=== PATIENT | female | born 1950 | race Caucasian/White ===

== ENCOUNTER 2019-05-03 22:27 | Inpatient (IN) | payer OTHER, MEDICAID ==
[2019-05-03 23:44] LABS: ADD MAN DIFF? NO
[2019-05-03 23:48] LABS: INR 1.81; PROTIME 21.1 Sec (11.9-14.9); PT RATIO 1.6
[2019-05-03 23:52] LABS: ANION GAP 6 (5-13); BLOOD UREA NITROGEN 42 mg/dl (7-20); CALCIUM 9.6 mg/dl (8.4-10.2); CARBON DIOXIDE 31 mmol/L (21-31); CHLORIDE 102 mmol/L (97-110); CREATININE 1.19 mg/dl (0.44-1.00); Estimated GFR 45 mL/min (>60); GLUCOSE 141 mg/dl (70-220); POTASSIUM 4.7 mmol/L (3.5-5.1); SODIUM 139 mmol/L (135-144)
[2019-05-03 23:54] LABS: WHITE BLOOD COUNT 5.4 10^3/ul (4.8-10.8)
[2019-05-03 23:54] LABS: BASOPHIL # 0.1 10^3/ul (0.0-0.1); BASOPHILS % 0.9 % (0.0-2.0); EOSINOPHILS # 0.1 10^3/ul (0.0-0.5); EOSINOPHILS % 1.3 % (0.0-7.0); HEMATOCRIT 37.1 % (37.0-47.0); HEMOGLOBIN 11.1 g/dl (12.0-16.0); LYMPHOCYTES % 18.1 % (15.0-51.0); MEAN CORPUSCULAR HEMOGLOBIN 24.6 pg (29.0-33.0); MEAN CORPUSCULAR HGB CONC 29.9 g/dl (32.0-37.0); MEAN CORPUSCULAR VOLUME 82.1 fl (82.0-101.0); MEAN PLATELET VOLUME 12.4 fl (7.4-10.4); MONOCYTE # 0.5 10^3/ul (0.3-0.9); MONOCYTES % 9.9 % (0.0-11.0); NEUTROPHIL # 3.7 10^3/ul (1.6-7.5); NEUTROPHILS % 69.2 % (39.0-77.0); PLATELET COUNT 180 10^3/UL (140-415); RED BLOOD COUNT 4.52 10^6/ul (4.20-5.40); RED CELL DISTRIBUTION WIDTH 19.2 % (11.5-14.5)
[2019-05-04 00:04] LABS: B-TYPE NATRIURETIC PEPTIDE 5500 PG/ML (0-125); TROPONIN-I < 0.012 ng/ml (0.000-0.120)
[2019-05-04 00:44] LABS: ADD UMIC YES; UR ASCORBIC ACID NEGATIVE (NEGATIVE); UR BACTERIA FEW /HPF (NONE SEEN); UR BILIRUBIN (Dip) NEGATIVE (NEGATIVE); UR BLOOD (Dip) NEGATIVE (NEGATIVE); UR CLARITY CLEAR (CLEAR); UR COLOR YELLOW (YELLOW); UR GLUCOSE (Dip) NEGATIVE (NEGATIVE); UR KETONES (Dip) NEGATIVE (NEGATIVE); UR LEUKOCYTE ESTERASE (Dip) NEGATIVE Leu/ul (NEGATIVE); UR NITRITE (Dip) NEGATIVE (NEGATIVE); UR RBC 0 /HPF (0-5); UR SPECIFIC GRAVITY (Dip) 1.018 (1.003-1.030); UR TOTAL PROTEIN (Dip) 3+ mg/dl (NEGATIVE); UR UROBILINOGEN (Dip) 2+ mg/dL (NEGATIVE); UR WBC 2 /HPF (0-5)
[2019-05-04] MEDS: FUROSEMIDE 20 MG INJ IV ×3 (01:41→17:26)
[2019-05-04] MEDS ORDERED: NACL 0.9% 3 ML SYG IV (02:00)
[2019-05-04] MEDS ORDERED: BISACODYL (EC) 5 MG TAB PO (02:00)
[2019-05-04] MEDS ORDERED: DOCUSATE SODIUM 100 MG CAP PO (02:00)
[2019-05-04] MEDS ORDERED: ONDANSETRON 4 MG INJ IV (02:00)
[2019-05-04 06:12] LABS: ADD MAN DIFF? NO
[2019-05-04] MEDS: ACETAMINOPHEN 325 MG TAB PO ×2 (06:13→21:25)
[2019-05-04 06:21] LABS: WHITE BLOOD COUNT 4.7 10^3/ul (4.8-10.8)
[2019-05-04 06:21] LABS: BASOPHILS % 0.8 % (0.0-2.0); EOSINOPHILS # 0.1 10^3/ul (0.0-0.5); EOSINOPHILS % 1.5 % (0.0-7.0); HEMATOCRIT 34.5 % (37.0-47.0); HEMOGLOBIN 10.4 g/dl (12.0-16.0); LYMPHOCYTES # 0.8 10^3/ul (0.8-2.9); LYMPHOCYTES % 16.7 % (15.0-51.0); MEAN CORPUSCULAR HEMOGLOBIN 24.6 pg (29.0-33.0); MEAN CORPUSCULAR HGB CONC 30.1 g/dl (32.0-37.0); MEAN CORPUSCULAR VOLUME 81.6 fl (82.0-101.0); MEAN PLATELET VOLUME 10.8 fl (7.4-10.4); MONOCYTE # 0.4 10^3/ul (0.3-0.9); MONOCYTES % 9.3 % (0.0-11.0); NEUTROPHIL # 3.4 10^3/ul (1.6-7.5); NEUTROPHILS % 71.5 % (39.0-77.0); PLATELET COUNT 154 10^3/UL (140-415); RED BLOOD COUNT 4.23 10^6/ul (4.20-5.40); RED CELL DISTRIBUTION WIDTH 19.1 % (11.5-14.5)
[2019-05-04 06:43] LABS: ANION GAP 6 (5-13); BLOOD UREA NITROGEN 39 mg/dl (7-20); CALCIUM 9.7 mg/dl (8.4-10.2); CARBON DIOXIDE 33 mmol/L (21-31); CHLORIDE 101 mmol/L (97-110); CHOL/HDL RATIO 3.7 RATIO; CHOLESTEROL 101 mg/dl (100-200); CREATININE 1.12 mg/dl (0.44-1.00); Estimated GFR 48 mL/min (>60); GLUCOSE 141 mg/dl (70-220); HDL CHOLESTEROL 27 mg/dl (33-92); LDL CHOLESTEROL,CALCULATED 49 mg/dl; MAGNESIUM 1.3 mg/dl (1.7-2.5); POTASSIUM 3.7 mmol/L (3.5-5.1); SODIUM 140 mmol/L (135-144); TRIGLYCERIDES 126 mg/dl (0-149)
[2019-05-04 06:46] LABS: INR 1.79; PROTIME 20.9 Sec (11.9-14.9); PT RATIO 1.6
[2019-05-04 08:13] LABS: HEMOGLOBIN A1C 7.3 % (0-5.9)
[2019-05-04 08:38] LABS: FREE T3 2.49 pg/ml (2.77-5.27); FREE T4 (FREE THYROXINE) 1.23 ng/dl (0.78-2.44)
[2019-05-04] MEDS ORDERED: NON-FORMULARY/PATIENT OWN MED (Omeprazole* 40 MG) XX (09:00)
[2019-05-04] MEDS: GABAPENTIN 300 MG CAP PO ×3 (09:44→21:19)
[2019-05-04] MEDS: METHIMAZOLE 5 MG TAB PO (09:44)
[2019-05-04] MEDS: SOTALOL 80 MG TAB PO (09:44)
[2019-05-04] MEDS: CEPHALEXIN 500 MG CAP PO ×2 (09:44→21:19)
[2019-05-04] MEDS: AMLODIPINE 10 MG TAB PO (09:45)
[2019-05-04] MEDS: PANTOPRAZOLE (EC) 40 MG TAB PO (09:45)
[2019-05-04] MEDS ORDERED: WARFARIN 2 MG TAB PO (17:00)
[2019-05-04] MEDS: WARFARIN 2 MG TAB PO (17:27)
[2019-05-04] MEDS ORDERED: traMADol 50 MG TAB PO (19:00)
[2019-05-04] MEDS ORDERED: NITROGLYCERIN (SL) 0.4 MG TAB SL (19:00)
[2019-05-04] MEDS ORDERED: AL HYDROX/MG HYDROX/SIMETH 30 ML CUP PO (19:00)
[2019-05-04] MEDS: ATORVASTATIN 40 MG TAB PO (21:19)
[2019-05-04] MEDS: MONTELUKAST 10 MG TAB PO (21:19)
[2019-05-04] MEDS: METOPROLOL 25 MG TAB PO (21:21)
[2019-05-04] MEDS: LIDOCAINE/MYLANTA 40 ML BTL PO (23:59)
[2019-05-05 05:21] LABS: ADD MAN DIFF? NO
[2019-05-05 05:36] LABS: BASOPHILS % 0.6 % (0.0-2.0); EOSINOPHILS # 0.1 10^3/ul (0.0-0.5); EOSINOPHILS % 1.7 % (0.0-7.0); HEMATOCRIT 35.3 % (37.0-47.0); HEMOGLOBIN 10.6 g/dl (12.0-16.0); LYMPHOCYTES % 19.2 % (15.0-51.0); MEAN CORPUSCULAR VOLUME 79.9 fl (82.0-101.0); MEAN PLATELET VOLUME 12.1 fl (7.4-10.4); MONOCYTE # 0.6 10^3/ul (0.3-0.9); MONOCYTES % 10.7 % (0.0-11.0); NEUTROPHIL # 3.5 10^3/ul (1.6-7.5); NEUTROPHILS % 67.4 % (39.0-77.0); PLATELET COUNT 152 10^3/UL (140-415); RED BLOOD COUNT 4.42 10^6/ul (4.20-5.40); RED CELL DISTRIBUTION WIDTH 18.6 % (11.5-14.5)
[2019-05-05 05:36] LABS: WHITE BLOOD COUNT 5.2 10^3/ul (4.8-10.8)
[2019-05-05 05:50] LABS: ANION GAP 5 (5-13); BLOOD UREA NITROGEN 32 mg/dl (7-20); CALCIUM 9.2 mg/dl (8.4-10.2); CARBON DIOXIDE 35 mmol/L (21-31); CHLORIDE 97 mmol/L (97-110); CREATININE 0.87 mg/dl (0.44-1.00); Estimated GFR > 60 mL/min (>60); GLUCOSE 114 mg/dl (70-220); INR 1.61; MAGNESIUM 1.4 mg/dl (1.7-2.5); POTASSIUM 3.3 mmol/L (3.5-5.1); PROTIME 19.2 Sec (11.9-14.9); PT RATIO 1.5; SODIUM 137 mmol/L (135-144)
[2019-05-05] MEDS: FUROSEMIDE 20 MG INJ IV ×2 (05:56→17:02)
[2019-05-05] MEDS: ACETAMINOPHEN 325 MG TAB PO (06:02)
[2019-05-05] MEDS: PANTOPRAZOLE (EC) 40 MG TAB PO (08:32)
[2019-05-05] MEDS: METHIMAZOLE 5 MG TAB PO (08:32)
[2019-05-05] MEDS: GABAPENTIN 300 MG CAP PO ×3 (08:32→22:11)
[2019-05-05] MEDS: CEPHALEXIN 500 MG CAP PO ×2 (08:33→22:11)
[2019-05-05] MEDS: AMLODIPINE 5 MG TAB PO (08:33)
[2019-05-05] MEDS: METOPROLOL 25 MG TAB PO ×2 (08:33→22:12)
[2019-05-05 10:06] LABS: OCCULT BLOOD STOOL NEGATIVE (NEGATIVE)
[2019-05-05] MEDS: LOSARTAN 50 MG TAB PO (12:24)
[2019-05-05] MEDS: POTASSIUM CHLORIDE 20 MEQ POWDER FOR ORAL SOLN PO (15:12)
[2019-05-05] MEDS: WARFARIN 2 MG TAB PO (16:16)
[2019-05-05] MEDS: MAGNESIUM SULFATE 4 GM/100 ML 100 ML IVPB (16:16)
[2019-05-05] MEDS: MONTELUKAST 10 MG TAB PO (22:11)
[2019-05-05] MEDS: ATORVASTATIN 40 MG TAB PO (22:11)
[2019-05-06] MEDS: AL HYDROX/MG HYDROX/SIMETH 30 ML CUP PO ×3 (00:41→10:54)
[2019-05-06] MEDS: ACETAMINOPHEN 325 MG TAB PO (04:26)
[2019-05-06 06:12] LABS: ADD MAN DIFF? NO
[2019-05-06 06:20] LABS: BASOPHILS % 0.6 % (0.0-2.0); EOSINOPHILS # 0.1 10^3/ul (0.0-0.5); EOSINOPHILS % 1.5 % (0.0-7.0); HEMATOCRIT 36.1 % (37.0-47.0); HEMOGLOBIN 10.8 g/dl (12.0-16.0); LYMPHOCYTES # 0.9 10^3/ul (0.8-2.9); LYMPHOCYTES % 14.6 % (15.0-51.0); MEAN CORPUSCULAR HEMOGLOBIN 24.3 pg (29.0-33.0); MEAN CORPUSCULAR HGB CONC 29.9 g/dl (32.0-37.0); MEAN CORPUSCULAR VOLUME 81.3 fl (82.0-101.0); MEAN PLATELET VOLUME 11.5 fl (7.4-10.4); MONOCYTE # 0.7 10^3/ul (0.3-0.9); MONOCYTES % 10.7 % (0.0-11.0); NEUTROPHIL # 4.5 10^3/ul (1.6-7.5); NEUTROPHILS % 72.4 % (39.0-77.0); NUCLEATED RED BLOOD CELLS% 0.3 /100WBC (0.0-0.0); PLATELET COUNT 158 10^3/UL (140-415); RED BLOOD COUNT 4.44 10^6/ul (4.20-5.40); RED CELL DISTRIBUTION WIDTH 18.3 % (11.5-14.5)
[2019-05-06 06:20] LABS: WHITE BLOOD COUNT 6.2 10^3/ul (4.8-10.8)
[2019-05-06] MEDS: FUROSEMIDE 20 MG INJ IV ×2 (06:27→17:10)
[2019-05-06 06:38] LABS: INR 1.57; PROTIME 18.9 Sec (11.9-14.9); PT RATIO 1.5
[2019-05-06 06:40] LABS: ANION GAP 4 (5-13); BLOOD UREA NITROGEN 27 mg/dl (7-20); CALCIUM 8.9 mg/dl (8.4-10.2); CARBON DIOXIDE 35 mmol/L (21-31); CHLORIDE 99 mmol/L (97-110); CREATININE 0.78 mg/dl (0.44-1.00); Estimated GFR > 60 mL/min (>60); GLUCOSE 125 mg/dl (70-220); POTASSIUM 3.8 mmol/L (3.5-5.1); SODIUM 138 mmol/L (135-144)
[2019-05-06] MEDS: AMLODIPINE 5 MG TAB PO (08:52)
[2019-05-06] MEDS: PANTOPRAZOLE (EC) 40 MG TAB PO (08:52)
[2019-05-06] MEDS: LOSARTAN 50 MG TAB PO (08:52)
[2019-05-06] MEDS: GABAPENTIN 300 MG CAP PO ×2 (08:52→15:29)
[2019-05-06] MEDS: METHIMAZOLE 5 MG TAB PO (08:52)
[2019-05-06] MEDS: METOPROLOL 25 MG TAB PO (08:53)
[2019-05-06] MEDS: CEPHALEXIN 500 MG CAP PO (08:53)
[2019-05-06] MEDS: WARFARIN 2 MG TAB PO (16:47)
[2019-05-06] MEDS ORDERED: AMLODIPINE 5 MG TAB PO (21:00)
== END 2019-05-06 18:00 | disposition home or self-care (01) | DRG 292 ==
LOC: E/R 22:27 → 6WM 05-04 01:36
DX: I11.0 Hypertensive heart disease with heart failure (principal); N17.9 Acute kidney failure, unspecified; Z68.41 Body mass index [BMI] 40.0-44.9, adult; I50.43 Acute on chronic combined systolic (congestive) and diastolic (congestive) heart failure; E05.90 Thyrotoxicosis, unspecified without thyrotoxic crisis or storm; Z79.01 Long term (current) use of anticoagulants; E11.9 Type 2 diabetes mellitus without complications; K21.9 Gastro-esophageal reflux disease without esophagitis; I48.2 Chronic atrial fibrillation; I25.10 Atherosclerotic heart disease of native coronary artery without angina pectoris; Z95.5 Presence of coronary angioplasty implant and graft; E78.5 Hyperlipidemia, unspecified; E66.01 Morbid (severe) obesity due to excess calories; I27.20 Pulmonary hypertension, unspecified
CPT/HCPCS: 36415; 71045; 80048; 80061; 81001; 82270; 83036; 83735; 83880; 84439; 84443; 84481; 84484; 85025; 85610; 85730; 93005; 93306; 99285-25; G0378